=== PATIENT | male | born 1965 | race Caucasian/White ===

== ENCOUNTER 2023-11-13 13:05 | Emergency (ER) | payer BC, OTHER ==
[2023-11-13 13:22] VITALS: PULSE 62
[2023-11-13 13:40] LABS: BASOPHILS ABSOLUTE AUTO 0.1 K/mm3 (0.0-0.2); BASOPHILS PERCENT AUTO 0.4 % (0.0-1.0); EOSINOPHILS ABSOLUTE AUTO 0.1 K/mm3 (0.0-0.4); EOSINOPHILS PERCENT AUTO 0.8 % (0.0-6.0); HEMATOCRIT 47.7 % (42.0-52.0); HEMOGLOBIN 16.5 gm/dl (14.0-18.0); IMMATURE GRAN ABSOLUTE AUTO 0.07 K/mm3 (0.00-0.05); IMMATURE GRAN PERCENT AUTO 0.5 % (0.0-0.4); LYMPHOCYTES ABSOLUTE AUTO 1.4 K/mm3 (1.0-4.8); LYMPHOCYTES PERCENT AUTO 10.7 % (24.0-44.0); MEAN CORPUSCULAR HEMOGLOBIN 31.8 pg (28.0-32.0); MEAN CORPUSCULAR HGB CONC 34.6 g/dl (32.0-36.0); MEAN CORPUSCULAR VOLUME 91.9 fl (83.0-99.0); MEAN PLATELET VOLUME 10.3 fl (9.4-12.4); MONOCYTES ABSOLUTE AUTO 0.5 K/mm3 (0.0-0.8); MONOCYTES PERCENT AUTO 3.9 % (0.0-8.0); NEUTROPHILS ABSOLUTE AUTO 11.1 K/mm3 (1.8-7.7); NEUTROPHILS PERCENT AUTO 83.7 % (41.0-71.0); PLATELET COUNT,PLT 221 K/mm3 (150-400); RED BLOOD CELL COUNT 5.19 M/mm3 (4.52-5.90); WHITE BLOOD CELL COUNT,WBC 13.22 K/mm3 (3.9-11.3)
[2023-11-13] MEDS: Ketorolac 30 MG/ML SDV IVPUSH ONE (13:49)
[2023-11-13] MEDS: Sodium Chloride 0.9% 1,000 ML IV SCH (13:50)
[2023-11-13] MEDS: Tamsulosin 0.4 MG Cap.ER PO ONE (13:50)
[2023-11-13] MEDS: Sodium Chloride 0.9% 10 ML Syringe FLUSH PRN (13:50)
[2023-11-13] MEDS: Ondansetron 4 MG/2 ML SDV IVPUSH ONE (13:50)
[2023-11-13 14:04] LABS: A/G RATIO 1.4 (1-2); ALBUMIN 4.2 g/dl (3.4-5.0); ANION GAP 16.4 (5-15); BILIRUBIN TOTAL 0.7 mg/dL (0.2-1.0); BUN/CREATININE RATIO 15.7 (14-18); CALCIUM 9.4 mg/dL (8.5-10.1); CREATININE 1.4 mg/dL (0.7-1.3); EST CRCL DRUG DOSING (CG) 58.66 mL/min; POTASSIUM,K 4.4 mEq/L (3.5-5.1); PROTEIN TOTAL,TP 7.3 g/dl (6.4-8.2)
[2023-11-13 14:06] LABS: LACTIC ACID 1.8 mmol/L (0.4-2.0)
[2023-11-13] MEDS ORDERED: Naloxone 0.4 MG/ML SDV IVPUSH PRN (14:11)
[2023-11-13] MEDS: fentaNYL 100 MCG/2 ML SDV IVPUSH ONE ×2 (14:14→16:08)
[2023-11-13 15:17] LABS: APPEARANCE,URINE CLEAR (Clear); BILIRUBIN,URINE NEGATIVE (Negative); COLOR,URINE YELLOW (Yellow); GLUCOSE,URINE NEGATIVE (Negative); KETONES,URINE 1+ (Negative); LEUKOCYTE ESTERASE,URINE NEGATIVE (Negative); NITRITE,URINE NEGATIVE (Negative); OCCULT BLOOD,URINE 2+ (Negative); PH,URINE 5.5 (5.0-8.0); PROTEIN,URINE TRACE (Negative); UROBILINOGEN,URINE 0.2 (0.2-1.0)
[2023-11-13 15:24] LABS: BACTERIA,URINE FEW /hpf (FEW); MUCUS,URINE MANY /hpf (FEW); RBC,URINE 50-75 /hpf (0-5); SQUAMOUS EPITHELIAL CELLS,UR 0-5 /hpf (0-5); WBC,URINE 0-5 /hpf (0-5)
[2023-11-13] MEDS ORDERED: fentaNYL 100 MCG/2 ML SDV IVPUSH ONE (16:00)
[2023-11-13 16:42] VITALS: BP 147/85
== END 2023-11-13 16:22 | disposition home or self-care (01) ==
LOC: JD.ED 13:05
DX: N13.2 Hydronephrosis with renal and ureteral calculous obstruction (principal); Z79.899 Other long term (current) drug therapy
CPT/HCPCS: 36415; 74176; 80053; 81001; 83605; 85025; 96361; 96374; 96375; 96376; 99284; A9270; J1885; J2405; J3010; J3490; J7030